=== PATIENT | female | born 1995 | race American Indian/Alaskan Native ===

== ENCOUNTER 2020-05-10 05:26 | Emergency (ER) | payer OTHER ==
[2020-05-10 07:30] VITALS: BP 105/67
[2020-05-10] MEDS ORDERED: dexAMETHasone 20 MG/5 ML VIAL IV STA (07:47)
[2020-05-10] MEDS ORDERED: HYDROcodone/ACETAMINOPHEN 5-325 MG TAB PO ONE (07:48)
--- NOTE | 2020-05-10 08:00 | Emergency Department Report ---
ED General Adult HPI - General Chief complaint: Sore Throat Stated complaint: SORE THROAT,BODYACHE,COUGH Time Seen by Provider: 05/10/20 07:28 Source: patient Mode of arrival: Ambulatory Limitations: No Limitations - History of Present Illness Initial comments: 24-year-old -[place] female patient with history of seizures presents with complaints of sore throat x5 days. Patient states the pain is right-sided and that she began to notice swelling in the right portion of her neck 2 days ago. She states the pain is a 10/10 in severity and has been worsening since its onset. She denies any fever, difficulty opening of her jaw, drooling, chest pain, cough, or shortness of breath. Pain worsens with swallowing per patient. -: Gradual - Related Data Previous Rx's Medication Instructions Recorded Last Taken Type Amoxicillin [Trimox CAP] 500 mg PO BID 10 Days #20 capsule 05/10/20 Unknown Rx Ibuprofen [Motrin] 800 mg PO Q8HR PRN #15 tablet 05/10/20 Unknown Rx Allergies Allergy/AdvReac Type Severity Reaction Status Date / Time No Known Allergies Allergy Unverified 05/10/20 06:13 ED Review of Systems ROS: Stated complaint: SORE THROAT,BODYACHE,COUGH Other details as noted in HPI Constitutional: denies: chills, diaphoresis, fever, malaise, weakness ENT: throat pain Respiratory: denies: cough, shortness of breath Cardiovascular: denies: chest pain Gastrointestinal: denies: nausea, vomiting Skin: denies: rash, lesions Neurological: denies: headache Hematological/Lymphatic: swollen glands ED Past Medical Hx - Past Medical History Previous Medical History?: Yes Hx Seizures: Yes (Last seizure 4 months ago) - Surgical History Past Surgical History?: No - Medications Home Medications: Home Medications Medication Instructions Recorded Confirmed Last Taken Type Amoxicillin [Trimox CAP] 500 mg PO BID 10 Days #20 capsule 05/10/20 Unknown Rx Ibuprofen [Motrin] 800 mg PO Q8HR PRN #15 tablet 05/10/20 Unknown Rx ED Physical Exam - General Limitations: No Limitations General appearance: alert, in no apparent distress, other (Patient appears uncomfortable) - Head Head exam: Present: atraumatic, normocephalic - Eye Eye exam: Present: normal appearance. Absent: scleral icterus - Expanded ENT Exam Expanded Mouth exam: Present: tongue normal, tongue elevation. Absent: drooling, trismus, muffled voice Throat exam: Positive: tonsillar erythema (Right sided), tonsillomegaly (Right- sided), tonsillar exudate (Right side), other (No deviation of the uvula noted) - Neck Neck exam: Present: full ROM, lymphadenopathy (There is mild anterior cervical lymphadenopathy noted with moderate tenderness to palpation). Absent: meningismus - Respiratory Respiratory exam: Present: normal lung sounds bilaterally. Absent: respiratory distress - Cardiovascular Cardiovascular Exam: Present: regular rate, normal rhythm - Extremities Exam Extremities exam: Present: normal inspection - Back Exam Back exam: Present: normal inspection - Neurological Exam Neurological exam: Present: alert, oriented X3 - Psychiatric Psychiatric exam: Present: normal affect, normal mood - Skin Skin exam: Present: warm, dry, intact, normal color. Absent: rash, cyanosis, diaphoretic, petechiae ED Course Vital Signs 05/10/20 06:15 Temperature 98.5 F Pulse Rate 91 H Respiratory 18 Rate Blood Pressure 105/67 O2 Sat by Pulse 99 Oximetry ED Medical Decision Making - Medical Decision Making Patient here with complaints of right-sided sore throat for the past 4 to 5 days. On exam, there is right tonsillar swelling with exudate, however the uvula is midline and there is no trismus or drooling or muffled voice noted on exam. Will treat for strep pharyngitis. Discussed in detail with patient signs and symptoms that should prompt immediate return to the emergency department including but not limited to increased pain, dysphagia, muffled voice, trismus, or any other new or worsening symptoms. Patient verbalizes understanding. Her vitals are normal, her pain is controlled, and she is well-appearing and stable for discharge home. Follow-up with PCP recommended in 3 to 5 days. Prescription given for Amoxil and ibuprofen. Critical care attestation.: If time is entered above; I have spent that time in minutes in the direct care of this critically ill patient, excluding procedure time. ED Disposition Clinical Impression: Strep pharyngitis Disposition: - TO HOME OR SELFCARE Is pt being admited?: No Condition: Stable Instructions: Strep Throat (ED) Prescriptions: Ibuprofen [Motrin] 800 mg PO Q8HR PRN #15 tablet PRN Reason: pain Amoxicillin [Trimox CAP] 500 mg PO BID 10 Days #20 capsule Referrals: PRIMARY CARE, [Primary Care Provider] - 3-5 Days
[2020-05-10] MEDS ORDERED: AMOXICILLIN 500 MG CAP PO ONE (08:47)
== END 2020-05-10 08:54 | disposition home or self-care (01) ==
LOC: ED 05:26
DX: J02.0 Streptococcal pharyngitis (principal); Z86.69 Personal history of other diseases of the nervous system and sense organs; Z79.1 Long term (current) use of non-steroidal anti-inflammatories (NSAID); Z79.2 Long term (current) use of antibiotics
CPT/HCPCS: 87116; 87430; 96374; 99284; J1100

== ENCOUNTER 2021-08-04 15:13 | Outpatient (CLI) | payer OTHER ==
[2021-08-04 16:29] VITALS: BP 105/57
--- NOTE | 2021-08-04 21:48 | Event Note ---
Date: 08/04/21 pt here because she was sent from clinic with accucheck 239 and hgb A1c done here was 5.3. Pt had reactive NST per triage nurse and pt told to follow up in clinic with her provider or go to the hospital of choice where her provider needs further evaluation. pt discharged home stable.
--- NOTE | 2021-08-07 14:47 | Ultrasound Report ---
ULTRASOUND BIOPHYSICAL PROFILE INDICATION: ELEVATED GLUCOSE. COMPARISON: None available. FINDINGS: heart rate is 149 beats per minute. breathing movement = 2 Gross body movement = 2 tone = 2 Qualitative amniotic fluid volume = 2 IMPRESSION: biophysical profile = 04/23 Signer Name: Grupo Constantino Jr, MD Signed: 08/07/2021 2:43 PM Workstation Name: [id number]
== END 2021-08-04 19:02 | disposition home or self-care (01) ==
LOC: TRG 15:13 → APU 15:16 → TRG 19:02
PROVIDERS: ATTEND Obstetrics & Gynecology
DX: O47.9 False labor, unspecified (principal); Z3A.00 Weeks of gestation of pregnancy not specified
CPT/HCPCS: 36415; 59025; 76819; 83036